=== PATIENT | female | born 1990 | race Caucasian/White ===

== ENCOUNTER 2017-05-24 08:03 | Outpatient (CLI) | payer MEDICAID, SELFPAY ==
[2017-05-24 08:18] VITALS: BMI 36.6
[2017-05-24] MEDS: Ondansetron 8 MG Tablet PO (09:29)
--- NOTE | 2017-05-29 08:52 | OB.TRI.NOTE ---
History of Present Illness Date of Service: 05/24/17 Was patient seen by the physician?: Yes Reason For Visit: CRAMPING Date of Service: 05/24/17 Final JOSUÉ: 09/23/17 Gestational age: 23 Weeks and 2 Days History of Present Illness: A 7-year-old female presents complaining of nausea, vomiting, and some abdominal cramping. She denies any gross vaginal bleeding or leaking of fluid. She denies any fevers or chills she has had a lot of heartburn this . Home Medications Medication Instructions Recorded ProMETHAzine [Phenergan] 12.5 mg PO Q6H PRN PRN #10 tab 05/24/17 Ranitidine [Zantac] 150 mg PO DAILY PRN #30 tab 05/24/17 Allergies No Known Allergies Allergy (Verified 05/24/17 08:18) NST - FHR Rate Baby A Baseline: Heart tones were dopplered Uterine Activity:: No contractions Impression/Plan 27-year-old high risk multigravida patient with nausea vomiting and some abdominal cramping. Reassured patient no evidence of labor. heart tones were auscultated. Recommend push fluids, antiemetics, follow-up if needed. Otherwise follow-up in the office as scheduled. Patient is comfortable with plan
== END 2017-05-24 09:35 | disposition home or self-care (01) ==
LOC: WPOUT 08:07 → WP 08:08
PROVIDERS: Visit Provider Obstetrics & Gynecology
DX: O21.2 Late vomiting of pregnancy (principal); O26.892 Other specified pregnancy related conditions, second trimester; R10.9 Unspecified abdominal pain; R12 Heartburn; Z79.899 Other long term (current) drug therapy; Z3A.23 23 weeks gestation of pregnancy
CPT/HCPCS: 59050; 99218; G0378

== ENCOUNTER 2017-09-13 21:00 | Outpatient (CLI) | payer MEDICAID, SELFPAY ==
--- NOTE | 2017-09-13 21:00 | DT_ITS ---
This patient was seen during an EMR downtime September 09, 2017 - September 16, 2017. This patient may have a combination of paper and electronic documentation or all paper documentation. All documentation is viewable within the e-chart portion of [facility] for each patient visit.
== END 2017-09-13 23:15 | disposition home or self-care (01) ==
LOC: WPOUT 09-14 07:58 → WP 09-14 08:31
PROVIDERS: Visit Provider Obstetrics & Gynecology
DX: O47.1 False labor at or after 37 completed weeks of gestation (principal); Z3A.38 38 weeks gestation of pregnancy
CPT/HCPCS: 59025; 59050; 99218; G0378

== ENCOUNTER 2017-09-17 07:00 | Inpatient (IN) | payer MEDICAID, SELFPAY ==
[2017-09-17 07:10] VITALS: BMI 36.9
[2017-09-17] MEDS: Lactated Ringers 1,000 ML 50 ML IV (07:30)
[2017-09-17] MEDS: Oxytocin 30 units/NS 500 ml 30 UNITS/500 ML IV.SOLN IV (07:50)
[2017-09-17 07:52] LABS: Hematocrit 31.8 % (37-47); Hemoglobin 10.1 g/dl (12.0-15.0); Mean Corp Hgb Conc 31.8 g/gl (32-36); Mean Corpuscular Hgb 25.3 pg (27.0-32.0); Mean Corpuscular Volume 79.5 fL (81-99); Mean Platelet Vol. 9.9 fl (6.2-12.0); Platelet Count 305 K/mm3 (150-450); RBC Distribution Width CV 14.8 % (11.6-14.6); RBC Distribution Width SD 41.4 fl (35.1-43.9); White Blood Count 8.3 K/mm3 (4.4-11.0)
[2017-09-17 07:54] LABS: Scan Indicated on CBC? Y/N NO
[2017-09-17] MEDS: fentaNYL-bupivacaine (epidural) 100 ML BAG EPIDURAL (08:50)
[2017-09-17] MEDS: Oxytocin 30 units/NS 500 ml 30 UNITS/500 ML IV.SOLN 334 UNITS IV (12:49)
--- NOTE | 2017-09-17 13:04 | PCM.HP.OB ---
History Date of Admission: 09/17/17 Final JOSUÉ: 09/23/17 Gestational age: 39 Weeks and 1 Days History of this : This is a 27 year-old, G [], P [], at 39 weeks gestational age. Allergies No Known Allergies Allergy (Verified 09/17/17 07:54) Home Medications: Home Medications Ranitidine [Zantac] 150 mg PO DAILY PRN #30 tab 05/24/17 proMETHazine tablet [Phenergan] 12.5 mg PO Q6H PRN PRN #10 tab 05/24/17 Vit No.130/Iron/FA [ Vitamins] 1 each PO 09/17/17 Smoking Status: Never smoker Alcohol: None History Past Pregnancies: Past Pregnancies Delivery Date Name GA/Weeks Outcome Route Weight Gender Labor Length Anesthesia Delivery Location Provider FOB Labs: GBS negative Expected Delivery Method: Spontaneous Vaginal Physical Exam General: Alert, Oriented x3 Abdomen: Soft, Non Tender, Non-Distended Cervix Dilation (cm): 5 Station: -1 Effacement (%): 80 Assessment/Plan 27yo female for elective induction at 39&1 Admit to L&D AROM clear fluid, on pitocin Epidural as desired EFW less than 4500g, adequate pelvis
--- NOTE | 2017-09-17 13:09 | PCM.OB.VAG ---
Vaginal Delivery Maternal Presentation: Elective Induction Method of Induction: Pitocin, Amniotomy Amniotic Membrane Rupture Type: Artificial Amniotic Fluid Description: Clear Final JOSUÉ: 09/23/17 Gestational age: 39 Weeks and 1 Days Date of Procedure: 09/17/17 Pre-Operative Diagnosis: Elective induction Post-Operative Diagnosis: Same Surgery/ Procedure Performed: Spontaneous Vaginal Delivery Type of Anesthesia: Epidural Description of Procedure: Patient was c/c/+2. Patient prepped & draped. She pushed & delivered head. Shoulders & body followed easily. placed on maternal abdomen. 3VC clamped & cut in delayed fashion. Placenta delivered with gentle traction. Good uterine tone obtained. Presentation: RAMA Placental Delivery Description: Expressed Placenta Disposition: [facility] Cord Vessel Description: 3 Vessels Estimated Blood Loss: 300ml Infant A gender: Female (1 minute): 8 (5 minute): 9 Episiotomy Description: None Laceration: 1st degree - vaginal - repaired with 3-0 vicryl Medications given after delivery: IV Pitocin Complications: None
[2017-09-17] MEDS: Oxytocin 30 units/NS 500 ml 30 UNITS/500 ML IV.SOLN 167 UNITS IV (13:20)
[2017-09-17 17:51] VITALS: BP 125/74; PULSE 95; RESP 16; TEMP 36.8
[2017-09-17 19:45] VITALS: BP 130/70; PULSE 92; RESP 18; TEMP 36.6
[2017-09-17] MEDS: Ibuprofen 600 MG Tablet PO (19:56)
[2017-09-17 23:31] VITALS: BP 111/61; PULSE 87; RESP 18; TEMP 36.1
[2017-09-18 04:00] VITALS: BP 118/66; PULSE 82; RESP 18; TEMP 35.9
[2017-09-18] MEDS: Ibuprofen 600 MG Tablet PO ×2 (06:25→13:37)
--- NOTE | 2017-09-18 08:42 | PCM.PN.OB ---
Subjective: Patient resting in bed at this time, reports was up most of night. Patient denies any issues or complaints; denies issues with urination or ambulation. Objective: Nipples without cracks and blisters, no erythema noted Abdomen NT x 4 quadrants, FF midline 2FB below umbilicus Perineum well-approximated, scant rubra lochia - Physical Exam General: Alert, Oriented x3, Cooperative HEENT: Atraumatic, Normocephalic Neck: Supple Lungs: Normal air movement Cardiovascular: Regular rate, Regular Rhythm Abdomen: Soft, Non Tender Extremities: No edema, Capillary Refill Less than 3 Seconds, No Calf Tenderness Skin: No rashes, No breakdown Musculoskeletal: No Tenderness to Palpation of Joints or Extremities Neurological: Cranial nerves II-XII grossly intact Psych/Mental Status: Normal Affect, Appropriate, Alert and oriented to time, place, person, mood and affect Vital Signs Temp Pulse Resp BP 96.6 F L 82 18 118/66 09/18/17 04:00 09/18/17 04:00 09/18/17 04:00 09/18/17 04:00 Oxygen Delivery Method Room Air Weight: 215 lb 6.4 oz Body Mass Index (BMI) 36.9 Intake and Output for Last 24 Hours 09/16/17 09/17/17 09/18/17 23:59 23:59 23:59 Output Total 1100 / 1100 Balance -1100 / -1100 Laboratory Tests Past 24 Hrs 09/17/17 09/17/17 07:30 15:30 Blood Type A NEGATIVE Antibody Screen NEGATIVE Screen NEGATIVE Baby's Blood Type O POSITIVE Baby's JHOANA NEGATIVE Medical Necessity - Tobacco Use Smoking Status: Never smoker Assessment/Plan 27 y/o s/p without complications, Normal Course, PPD #1 P: 1) Continue PP orders as directed 2) Anticipate discharge to home tomorrow. Rika Stevenson CNM
[2017-09-18] MEDS: Acetaminophen 500 MG Tablet 1000 MG PO (09:54)
[2017-09-18 09:55] VITALS: BP 121/80; PULSE 67; RESP 16; TEMP 35.7
[2017-09-18 11:45] VITALS: BP 121/72; PULSE 81; TEMP 35.7
[2017-09-18 16:07] VITALS: BP 118/71; PULSE 91; RESP 16; TEMP 35.9; O2SAT 98
[2017-09-18 19:45] VITALS: BP 119/71; PULSE 83; RESP 16; TEMP 36; O2SAT 99
[2017-09-19] MEDS: Acetaminophen 500 MG Tablet 1000 MG PO (00:02)
[2017-09-19 02:00] VITALS: BP 123/80; PULSE 66; RESP 18; TEMP 35.9; O2SAT 98
--- NOTE | 2017-09-19 07:13 | DCINST_ITS ---
Discharge Diet: No Restrictions Discharge Activity: Return to Normal Activity, May not drive while taking narcotic pain medications., May Shower May resume sexual activity in: 4-6 weeks Additional Activity Instructions:: Nothing in the vagina for 4-6 weeks. You may return to work/school in 6 weeks. Call your doctor if your incision/area has: Continuous Slow Oozing, Sudden Increased Bleeding, Increased Pain/ Swelling, Increased Redness, Foul Smelling Discharge Call your doctor if you observe: Fever of 101 or Higher, Inability to urinate, Inability to have a bowel movement, Using more than one pad per hour Additional Instructions: If you experience any of the following, contact your healthcare provider. * Bleeding that soaks a pad every hour for 2 hours * Fever 100.4 or higher * Unrelieved incision or abdominal pain * Swelling, redness, discharge or bleeding from your incision or episiotomy site * Your incision begins to separate * Problems urinating (including inability to urinate or burning while urinating) . * Visual changes * Severe headache * Flu-like symptoms * Pain or redness in one of both of your breasts * Pain, warmth, tenderness or swelling in your legs, especially the calf area * Frequent nausea and vomiting * Symptoms of depression or anxiety If you experience any of the following, call 911 or go to the nearest Emergency Room. * Chest pain * Problems breathing * Seizure activity * Partial or complete paralysis of a body part, slurred speech, weakness or drooping of the face, or a sudden inability to walk or hold your balance Allergies/Adverse Reactions: Allergies No Known Allergies Allergy (Verified 09/17/17 07:54) Medications to take at Discharge Ranitidine [Zantac] 150 mg PO DAILY PRN #30 tab 05/24/17 proMETHazine tablet [Phenergan] 12.5 mg PO Q6H PRN PRN #10 tab 05/24/17 Vit No.130/Iron/FA [ Vitamins] 1 each PO 09/17/17 When: Call to make an appointment with your doctor in 6 weeks. If you had elevated Blood Pressure or 4th degree laceration you will need to be seen in 2 weeks. Primary Care Physician: Care Physician,No Primary [Primary Care Provider] - Proposed Discharge Date: 09/19/17
[2017-09-19 07:55] VITALS: BP 113/73; PULSE 82; RESP 18; TEMP 36; O2SAT 99
--- NOTE | 2017-09-19 08:16 | PCM.PN.OB ---
Subjective: Patient sitting up in bed, bonding with baby at this time. Patient reports no issues. Denies issues with urination or ambulation. Reports some nipple soreness with latching, plans to both breast and formula feed at this time. Patient unsure if she is interested in continuing to breastfeed once she is discharged home. Patient desires discharge to home today. Objective: Nipples without erythema, cracks or blisters. Small area of ecchymoses at Lt. Nipple tip Abdomen NT x 4 quadrants, FF midline 3FB below umbilicus Scant rubra lochia, perineum well-approximated No edema in LE - Physical Exam General: Alert, Oriented x3, Cooperative HEENT: Atraumatic, Normocephalic Neck: Supple Lungs: Clear to auscultation, Normal air movement Cardiovascular: Regular rate, Regular Rhythm Abdomen: Soft, Non Tender Extremities: No edema, Capillary Refill Less than 3 Seconds Skin: No rashes, No breakdown Musculoskeletal: No Tenderness to Palpation of Joints or Extremities Neurological: Cranial nerves II-XII grossly intact, Deep Tendon Reflexes 2+/4 and Symmetrical Psych/Mental Status: Normal Affect, Appropriate, Alert and oriented to time, place, person, mood and affect Vital Signs Temp Pulse Resp BP Pulse Ox 96.8 F L 82 18 113/73 99 09/19/17 07:55 09/19/17 07:55 09/19/17 07:55 09/19/17 07:55 09/19/17 07:55 Oxygen Delivery Method Room Air Weight: 215 lb 6.4 oz Body Mass Index (BMI) 36.9 Intake and Output for Last 24 Hours 09/17/17 09/18/17 09/19/17 23:59 23:59 23:59 Output Total 1100 / 1100 Balance -1100 / -1100 Medical Necessity - Tobacco Use Smoking Status: Never smoker Assessment/Plan 27 y/o, s/p without complications, PPD #2, Normal PP course P: 1) Discharge to home pending discharge 2) Anticipatory PP teaching done 3) RTC in 6 weeks for PP visit Rika ZAPATA
== END 2017-09-19 10:45 | disposition home or self-care (01) | DRG 373 ==
PROVIDERS: Admitting Provider Obstetrics & Gynecology; Visit Provider Obstetrics & Gynecology
DX: O70.0 First degree perineal laceration during delivery (principal); O75.89 Other specified complications of labor and delivery; Z3A.39 39 weeks gestation of pregnancy; Z37.0 Single live birth
CPT/HCPCS: 59025; 59050; 85027; 85461; 86850; 86900; 90384; 99218; J7120; G0378; J2790